=== PATIENT | male | born 1985 | race Caucasian/White ===

== ENCOUNTER 2018-11-10 21:10 | Emergency (ER) | payer OTHER ==
--- NOTE | 2018-11-10 21:42 | EDM.PDOC ---
ED HPI GENERAL MEDICAL PROBLEM - General Chief Complaint: Lower Extremity Injury/Pain Stated Complaint: RIGHT ANKLE PAIN Time Seen by Provider: 11/10/18 21:41 Source of Information: Reports: Patient - History of Present Illness INITIAL COMMENTS - FREE TEXT/NARRATIVE: HISTORY AND PHYSICAL: History of present illness: [Patient presents with right ankle pain 5 out of 10 nonradiating unable to bear weight due to pain, as history of previous ankle injury while in the , day he had rolled his ankle No fever nausea vomiting chills sweats no chest pain shortness breath headache dizziness palpitation about a urine symptoms] Review of systems: As per history of present illness and below otherwise all systems reviewed and negative. Past medical history: As per history of present illness and as reviewed below otherwise noncontributory. Surgical history: As per history of present illness and as reviewed below otherwise noncontributory. Social history: No reported history of drug or alcohol abuse. Family history: As per history of present illness and as reviewed below otherwise noncontributory. Physical exam: HEENT: Atraumatic, normocephalic, pupils reactive, negative for conjunctival pallor or scleral icterus, mucous membranes moist, throat clear, neck supple, nontender, trachea midline. Lungs: Clear to auscultation, breath sounds equal bilaterally, chest nontender. Heart: S1S2, regular, negative for clicks, rubs, or JVD. Abdomen: Soft, nondistended, nontender. Negative for masses or hepatosplenomegaly. Negative for costovertebral tenderness. Pelvis: Stable nontender. Genitourinary: Deferred. Rectal: Deferred. Extremities: Atraumatic, negative for cords or calf pain. Neurovascular unremarkable. Right foot is tender across the dorsum of the foot as well as medial and lateral malleolus entire limb is neurovascularly intact no bruising mild soft tissue swelling no redness warmth or open lesion Neuro: Awake, alert, oriented. Cranial nerves II through XII unremarkable. Cerebellum unremarkable. Motor and sensory unremarkable throughout. Exam nonfocal. Diagnostics: [Right ankle 3 views Right foot 3 views ] Therapeutics: [Cam boot Crutches Nonweightbearing Rest ice ibuprofen ] Impression: [ right lower extremity injury ] Definitive disposition and diagnosis as appropriate pending reevaluation and review of above. right ankle Pain Score (Numeric/FACES): 6 - Related Data Allergies Allergy/AdvReac Type Severity Reaction Status Date / Time No Known Allergies Allergy Verified 11/10/18 21:47 Home Meds: Home Meds . [No Known Home Meds] 11/10/18 [History] Review of Systems - Review of Systems Review Of Systems: See Below ED EXAM, GENERAL - Physical Exam Exam: See Below Course - Vital Signs Last Recorded V/S: Last Vital Signs Temp 97 F 11/10/18 21:30 Pulse 80 11/10/18 21:30 Resp 18 11/10/18 21:30 BP 125/80 11/10/18 21:30 Pulse Ox 95 11/10/18 21:30 Departure - Departure Time of Disposition: 22:39 Disposition: Home, Self-Care 01 Condition: Good Clinical Impression: (Ruled Out): Right leg injury - Discharge Information Referrals: PCP,Unknown [Primary Care Provider] - Forms: ED Department Discharge Additional Instructions: Cam boot crutches nonweightbearing Rest ice ibuprofen Follow-up with orthopedist, call phone number below to schedule appropriate follow-up [facility] [address], [address] [place] [address] my orthopedic The following information is given to patients seen in the emergency department who are being discharged to home. This information is to outline your options for follow-up care. We provide all patients seen in our emergency department with a follow-up referral. The need for follow-up, as well as the timing and circumstances, are variable depending upon the specifics of your emergency department visit. If you don't have a primary care physician on staff, we will provide you with a referral. We always advise you to contact your personal physician following an emergency department visit to inform them of the circumstance of the visit and for follow-up with them and/or the need for any referrals to a consulting specialist. The emergency department will also refer you to a specialist when appropriate. This referral assures that you have the opportunity for follow-up care with a specialist. All of these measure are taken in an effort to provide you with optimal care, which includes your follow-up. Under all circumstances we always encourage you to contact your private physician who remains a resource for coordinating your care. When calling for follow-up care, please make the office aware that this follow-up is from your recent emergency room visit. If for any reason you are refused follow-up, please contact the [facility] emergency department at and asked to speak to the emergency department charge nurse.
--- NOTE | 2018-11-10 22:26 | CR ---
Indication: Injury Technique: Right ankle 3 views. Comparison: None Findings: Bones: No definite evidence of fracture. Ossicle versus osteophyte at the margin of the medial malleolus. Joint spaces: Unremarkable. Soft tissues: Lateral soft tissue swelling. Impression: Lateral soft tissue swelling without evidence of fracture. Dictated by Damien Law MD @ Nov 10 2018 10:20PM Signed by Dr. Damien Law @ Nov 10 2018 10:23PM
--- NOTE | 2018-11-10 22:28 | CR ---
Indication: Injury Technique: Right foot 3 views. Comparison: None Findings: Bones: Alignment is normal. No fractures or bone lesions. Ossicle adjacent to the medial malleolus. Joint spaces: Unremarkable. Soft tissues: Unremarkable. Impression: No evidence of fracture or dislocation. Dictated by Damien Law MD @ Nov 10 2018 10:24PM Signed by Dr. Damien Law @ Nov 10 2018 10:25PM
== END 2018-11-10 22:50 | disposition home or self-care (01) ==
LOC: MW.ED 21:10
DX: S99.921A Unspecified injury of right foot, initial encounter (principal); X50.9XXA Other and unspecified overexertion or strenuous movements or postures, initial encounter
CPT/HCPCS: 73610-26-RT; 73610-RT; 73630-26-RT; 73630-RT; 99283-25

== ENCOUNTER 2021-10-04 06:00 | Emergency (ER) | payer MEDICAID, OTHER | END 2021-10-04 08:18 | disposition home or self-care (01) | LOC: MW.ED 06:00 | DX: S16.1XXA Strain of muscle, fascia and tendon at neck level, initial encounter (principal); S00.03XA Contusion of scalp, initial encounter; I10 Essential (primary) hypertension; W50.1XXA Accidental kick by another person, initial encounter | CPT/HCPCS: 70450; 70450-26; 72125; 72125-26; 99283-25 ==

== ENCOUNTER 2022-11-13 13:56 | Emergency (ER) | payer OTHER ==
[2022-11-13] MEDS ORDERED: Lisinopril 10 MG Tab PO STA (16:13)
== END 2022-11-13 16:40 ==
LOC: MW.ED 13:56
DX: F41.9 Anxiety disorder, unspecified (principal); I10 Essential (primary) hypertension; M54.50 Low back pain, unspecified; G89.29 Other chronic pain; Z79.899 Other long term (current) drug therapy; Z72.0 Tobacco use
CPT/HCPCS: 99284; A9270; 99283

== ENCOUNTER 2023-02-03 14:14 | Emergency (ER) | payer OTHER ==
[2023-02-03] MEDS ORDERED: Albuterol/Ipratropium 3.0-0.5 MG/3 ML Neb Soln NEB ONE (14:27)
[2023-02-03 14:51] LABS: BASOPHILS PERCENT AUTO 0.3 % (0.0-1.5); EOSINOPHILS ABSOLUTE AUTO 0.3 K/uL (0.0-0.7); HEMATOCRIT 45.5 % (38.0-50.0); HEMOGLOBIN 15.3 g/dL (13.0-17.0); LYMPHOCYTES ABSOLUTE AUTO 1.5 K/uL (0.6-2.4); LYMPHOCYTES PERCENT AUTO 17.4 % (16.0-40.0); MEAN CORPUSCULAR HEMOGLOBIN 30.2 pg (27.0-32.0); MEAN CORPUSCULAR HGB CONC 33.6 g/dL (31.0-37.0); MEAN CORPUSCULAR VOLUME 89.7 fL (80.0-98.0); MONOCYTES ABSOLUTE AUTO 0.9 K/uL (0.0-0.8); NEUTROPHILS ABSOLUTE AUTO 6.1 K/uL (1.4-5.7); NEUTROPHILS PERCENT AUTO 69.3 % (48.0-80.0); NRBC ABSOLUTE 0 K/uL; PLATELET COUNT,PLT 223 K/uL (150-400); RED BLOOD CELL COUNT 5.07 M/uL (4.50-5.90); WHITE BLOOD CELL COUNT,WBC 8.79 K/uL (4.0-11.0)
[2023-02-03 15:21] LABS: A/G RATIO 1.2 (0.9-1.6); ACETAMINOPHEN <2.0 ug/mL; ALANINE AMINOTRANSFERASE,ALT 63 IU/L (14-63); ALKALINE PHOSPHATASE 92 U/L (46-116); ASPARTATE AMNIOTRANSFERASE,AST 34 IU/L (15-37); BILIRUBIN TOTAL 1.1 mg/dL (0.2-1.0); BLOOD UREA NITROGEN,BUN 21 mg/dL (7.0-18.0); CALCIUM 8.9 mg/dL (8.5-10.1); CARBON DIOXIDE,CO2 29.3 mmol/L (21.0-32.0); CHLORIDE,CL 105 mmol/L (98-107); CREATININE 0.9 mg/dL (0.8-1.3); GLUCOSE RANDOM 106 mg/dL (74-106); POTASSIUM,K 3.8 mmol/L (3.5-5.1); PROTEIN TOTAL,TP 7.4 g/dL (6.4-8.2); SALICYLATE 0.9 mg/dL (0.0-20.0); SODIUM,NA 142 mmol/L (136-148); TSH ULTRASENSITIVE 1.24 uIU/mL (0.36-3.74)
[2023-02-03 15:22] LABS: APPEARANCE,URINE CLEAR; BILIRUBIN,URINE NEGATIVE (NEGATIVE); COLOR,URINE YELLOW; GLUCOSE,URINE NEGATIVE (NEGATIVE); KETONES,URINE TRACE mg/dL (NEGATIVE); LEUKOCYTE ESTERASE,URINE NEGATIVE (NEGATIVE); NITRITE,URINE NEGATIVE (NEGATIVE); OCCULT BLOOD,URINE TRACE-INTACT (NEGATIVE); PH,URINE 5.5 (5.0-8.0); PROTEIN,URINE NEGATIVE (NEGATIVE)
[2023-02-03 15:22] LABS: ESTIMATED GFR 114 mL/min (>60); ETHANOL BLOOD MEDICAL < 3.0 mg/dL
[2023-02-03 16:10] LABS: BACTERIA,URINE RARE (NEGATIVE); EPITHELIAL CELLS,URINE RARE (NONE-FEW); MUCUS,URINE LIGHT (NONE-MOD); RBC,URINE 0-1 (0-2/HPF); WBC,URINE 0-2 (0-5/HPF)
[2023-02-03 16:29] LABS: AMPHETAMINES SCREEN, URINE PRESUMPTIVE POSITIVE (CUTOFF=500); BARBITURATE SCREEN,URINE NEGATIVE (CUTOFF=200); BENZODIAZEPINES SCREEN,URINE NEGATIVE (CUTOFF=150); BUPRENORPHINE SCREEN,URINE NEGATIVE (CUTOFF=10); METHADONE SCREEN, URINE NEGATIVE (CUTOFF=200); METHAMPHETAMINES SCREEN, URINE PRESUMPTIVE POSITIVE (CUTOFF=500); OXYCODONE SCREEN,URINE NEGATIVE (CUT0FF=100); PCP SCREEN,URINE NEGATIVE (CUTOFF=25); PROPOXYPHENE SCREEN,URINE NEGATIVE (CUTOFF=300); THC SCREEN,URINE 20 NG/ML NEGATIVE (CUTOFF=50)
[2023-02-03] MEDS ORDERED: LORazepam 1 MG Tab PO ONE (17:31)
[2023-02-03] MEDS ORDERED: Nicotine 21 MG/24 Hr Patch TRDERM ONE (19:45)
== END 2023-02-04 03:16 | disposition left against medical advice (07) ==
LOC: MW.ED 14:14
DX: F32.A Depression, unspecified (principal); F15.10 Other stimulant abuse, uncomplicated; I10 Essential (primary) hypertension; Z79.899 Other long term (current) drug therapy; Z20.822 Contact with and (suspected) exposure to COVID-19; Z59.00 Homelessness unspecified
CPT/HCPCS: 36415; 71045; 80053; 80143; 80179; 80305; 80307; 81001; 84443; 85025; 87635; 93005; 99285; A9270; J7620-GY; U0002

== ENCOUNTER 2023-10-07 13:52 | Emergency (ER) | payer OTHER | END 2023-10-07 15:30 | LOC: MW.ED 13:52 | DX: R06.09 Other forms of dyspnea (principal); R09.81 Nasal congestion; I10 Essential (primary) hypertension | CPT/HCPCS: 99282; 99284 ==